=== PATIENT | male | born 1990 | race Hispanic/Latino ===

== ENCOUNTER 2021-03-31 13:47 | Emergency (ER) | payer OTHER ==
[~2021-03-31] VITALS: Ht 167.6 cm; Wt 135.2 kg
[2021-03-31 14:12] LABS: BASOPHILS % (AUTO) 0.2 % (0.0-5.0); EOSINOPHILS % (AUTO) 1.4 % (0.0-8.0); LYMPHOCYTES % (AUTO) 22.6 % (21.0-51.0); MEAN CORPUSCULAR HEMOGLOBIN 28.6 pg (27.0-33.0); MEAN CORPUSCULAR HGB CONC 31.8 g/dL (32.0-36.0); MEAN CORPUSCULAR VOLUME 89.8 fL (79-99); MONOCYTES % (AUTO) 6.5 % (3.0-13.0); NEUTROPHILS % (AUTO) 68.8 % (40.0-77.0); PLATELET COUNT (AUTO) 268 K/uL (130-400); RED CELL DISTRIBUTION WIDTH 14.2 % (11.0-15.5)
[2021-03-31 14:32] LABS: CREATININE 0.8 mg/dL (0.5-1.5); POTASSIUM 3.9 mmol/L (3.5-5.1)
[2021-03-31 14:37] LABS: ALBUMIN 3.4 g/dL (3.5-5.0); BILIRUBIN,TOTAL 0.6 mg/dL (0.2-1.0); TOTAL PROTEIN, SERUM 7.9 g/dL (6.0-8.3)
[2021-03-31] MEDS ORDERED: BENZ-39 PO (15:15)
[2021-03-31] MEDS ORDERED: IBUP-2070 PO (15:15)
[2021-03-31] MEDS ORDERED: ACET1TAB25 PO (15:15)
[2021-03-31] MEDS ORDERED: GUAIFENESIN-CODEINE 5 ML SYRUP PO ONE (16:00)
[2021-03-31] MEDS ORDERED: IBUPROFEN 600 MG TABLET PO ONE (16:00)
[2021-03-31 16:45] VITALS: BP 124/72
== END 2021-03-31 17:32 | disposition home or self-care (01) ==
LOC: EDH 13:47
DX: U07.1 COVID-19 (principal); Z79.1 Long term (current) use of non-steroidal anti-inflammatories (NSAID); Z79.899 Other long term (current) drug therapy
CPT/HCPCS: 36415; 80053; 85025; 87635; 87804 ×2; 99283; C9803

== ENCOUNTER 2022-02-03 00:23 | Emergency (ER) | payer OTHER ==
[~2022-02-03] VITALS: Ht 165.1 cm; Wt 135.2 kg
[~2022-02-03 00:23] MED LIST: ACET-2079 PO; BENZ-39 PO; IBUP-2070 PO
[2022-02-03] MEDS ORDERED: PROCHLORPERAZINE 10MG/2ML INJ IV ONE (01:00)
[2022-02-03] MEDS ORDERED: MORPHINE 4 MG SYG IVP ONE (01:00)
[2022-02-03] MEDS ORDERED: IOHEXOL 350 MG/ML 100ML INFUS..BTL IV ONE (01:27)
[2022-02-03 01:29] LABS: BASOPHILS % (AUTO) 0.3 % (0.0-5.0); EOSINOPHILS % (AUTO) 1.8 % (0.0-8.0); HEMATOCRIT 42.9 % (42-54); LYMPHOCYTES % (AUTO) 26.9 % (21.0-51.0); MEAN CORPUSCULAR HEMOGLOBIN 29.5 pg (27.0-33.0); MEAN CORPUSCULAR HGB CONC 32.4 g/dL (32.0-36.0); MEAN CORPUSCULAR VOLUME 91.1 fL (79-99); MONOCYTES % (AUTO) 7.8 % (3.0-13.0); NEUTROPHILS % (AUTO) 62.4 % (40.0-77.0); PLATELET COUNT (AUTO) 261 K/uL (130-400); RED BLOOD CELL COUNT(AUTO) 4.71 MIL/uL (4.50-6.20); RED CELL DISTRIBUTION WIDTH 14.1 % (11.0-15.5); WHITE BLOOD COUNT (AUTO) 10.2 K/uL (4.8-10.8)
[2022-02-03 01:39] LABS: CREATININE 0.8 mg/dL (0.5-1.5); INR 0.93 (0.85-1.15); POTASSIUM 3.3 mmol/L (3.5-5.1); PROTHROMBIN TIME 9.8 SEC (9.6-11.6)
[2022-02-03 01:43] LABS: ALBUMIN 3.5 g/dL (3.5-5.0); TOTAL PROTEIN, SERUM 8.4 g/dL (6.0-8.3)
[2022-02-03] MEDS ORDERED: ACET-2079 PO (03:53)
[2022-02-03 04:00] VITALS: BP 118/56
== END 2022-02-03 04:00 | disposition home or self-care (01) ==
LOC: EDH 00:23
DX: S93.04XA Dislocation of right ankle joint, initial encounter (principal); E66.2 Morbid (severe) obesity with alveolar hypoventilation; Z68.42 Body mass index [BMI] 45.0-49.9, adult; Z90.89 Acquired absence of other organs; V89.2XXA Person injured in unspecified motor-vehicle accident, traffic, initial encounter; Y93.89 Activity, other specified; Y92.89 Other specified places as the place of occurrence of the external cause; Y99.8 Other external cause status
CPT/HCPCS: 99285; 70450; 27840; 96374; 29515; 96375; 84484; 80053; 85025; 85610; 36415; 73610 ×2; 72125; 71270; 74178; 93005; J0780; J2270; Q9967; 29125